=== PATIENT | female | born 1985 | race Caucasian/White ===

== ENCOUNTER 2020-02-13 14:30 | Emergency (ER) | payer BC, SELFPAY ==
[2020-02-13 14:34] VITALS: BP 117/78; PULSE 78; RESP 12; TEMP 36.7; O2SAT 100
--- NOTE | 2020-02-13 14:53 | ED.URI ---
HPI - URI/Sore Throat General Chief Complaint: Ear Stated Complaint: sore throat Source: patient Mode of arrival: ambulatory Limitations: no limitations History of Present Illness HPI Narrative: Patient is a 34-year-old female who presents complaining of a sore throat. Patient reports sore throat started yesterday, increasing this morning. Patient also reports body aches. Patient works for the [employer] and does have high exposure risk to Covid. She denies taking [id number]-opn-[id number] medications for body aches or sore throat at this time. MD elicited complaint: sore throat Related Data Home Medications Medication Instructions Recorded Confirmed levonorgestrel 20 mcg/24 hours (6 1 device I-UTERINE ONCE 05/08/19 02/13/20 yrs) 52 mg intrauterine device naproxen 500 mg tablet 500 mg PO BID 05/08/19 02/13/20 levothyroxine 50 mcg PO DAILY 02/13/20 02/13/20 Allergies Allergy/AdvReac Type Severity Reaction Status Date / Time codeine Allergy Mild Nausea and Verified 02/13/20 14:34 Vomiting morphine Allergy Mild Nausea and Verified 02/13/20 14:34 Vomiting Review of Systems Review of Systems: Narrative: CONSTITUTIONAL: Denies fever, chills, or sweats. EYES: Denies visual changes, redness, or discharge. ENT: Reports sore throat CARDIOVASCULAR: Denies chest pain, palpitations, or edema. RESPIRATORY: Denies cough or dyspnea. GASTROINTESTINAL: Denies abdominal pain, nausea, vomiting, or diarrhea. GENITOURINARY: Denies dysuria or hematuria. SKIN: Denies rash or itching. MUSCULOSKELETAL: Reports generalized body aches NEUROLOGIC: Denies headache, numbness, dizziness, or weakness. PSYCHIATRIC: Denies anxiety or depression. [facility] Past Medical History Medical History Asthma Surgical History Surgical History H/O: History of strabismus surgery Hx of cholecystectomy Family History Family History Grandparent Family history of thyroid disease Cerebrovascular accident Family history of lung cancer Family history of congestive heart failure Diabetes mellitus Acute myocardial infarction Mother Family history of blood dyscrasia Father Family history of alcoholism Family history of hepatitis Social History Social History Smoking status: Never smoker Second hand tobacco smoke exposure: Yes Alcohol intake: never Exam Narrative: Exam Narrative: GENERAL: Well-appearing, well-nourished, and in no acute distress. HEAD: Normocephalic, atraumatic. EYES: EOMI. No redness or drainage. Conjunctiva are normal. ENT: Mucous membranes pink and moist. Throat normal erythema and exudate. Uvula midline. NECK: No lymphadenopathy. CHEST: No respiratory distress. EXTREMITIES: Normal range of motion. SKIN: Warm, dry, no rash. NEURO: No focal deficits. Alert and oriented x3. Gait steady. PSYCH: Normal affect. No signs of depression or anxiety. Course Vital Signs Vital signs: Vital Signs Temperature 36.7 C 02/13/20 14:34 Pulse Rate 78 02/13/20 14:34 Respiratory Rate 12 02/13/20 14:34 Blood Pressure 117/78 02/13/20 14:34 Pulse Oximetry 100 02/13/20 14:34 Temperature 36.7 C 02/13/20 14:34 Pulse Rate 78 02/13/20 14:34 Respiratory Rate 12 02/13/20 14:34 Blood Pressure 117/78 02/13/20 14:34 Pulse Oximetry 100 02/13/20 14:34 Reviewed MDM - URI/Sore Throat MDM Narrative Medical decision making narrative: Patient's rapid strep was negative, culture to be sent. Discussed with patient Covid testing. Patient works in a high risk environment with the [employer]. Patient agrees to Covid testing at this time. Discussed symptomatic treatment, as well as quarantine. Patient is aware that if she develops chest pain or shortness of
== END 2020-02-13 15:05 | disposition home or self-care (01) ==
PROVIDERS: Emergency Provider Nurse Practitioner; PCP Physician Assistant
DX: J06.9 Acute upper respiratory infection, unspecified (principal); Z20.828 Contact with and (suspected) exposure to other viral communicable diseases; J45.909 Unspecified asthma, uncomplicated
CPT/HCPCS: 87081; 87880; 99213; G0463

== ENCOUNTER 2020-02-14 07:05 | Outpatient (NON) | payer BC, SELFPAY ==
[2020-02-15 00:19] LABS: SARS-CoV-2 RNA PCR Positive
== END 2020-02-14 07:06 ==
PROVIDERS: PCP Physician Assistant; Visit Provider Nurse Practitioner
DX: U07.1 COVID-19 (principal)
CPT/HCPCS: 87635; C9803; U0003

== ENCOUNTER 2021-10-31 13:22 | Emergency (ER) | payer BC, SELFPAY ==
--- NOTE | ~2021-10-31 | XR_ITS ---
EXAMINATION: XR foot RT min 3V DATE: 10/31/2021 13:44 INDICATION: Right foot injury and pain. TECHNIQUE: 4 views of right foot were obtained. COMPARISON: None. FINDINGS: Bone alignment is normal. There is a comminuted intra-articular fracture of base of fifth m etatarsal in near-anatomic alignment. There is mild osteoarthritis of first metatarsophalangeal joint . IMPRESSION: 1. Comminuted intra-articular fracture of base of fifth metatarsal. Reviewed, dictated and finalized at location A.
[2021-10-31 13:44] VITALS: BP 128/76; PULSE 84; RESP 16; TEMP 36.5; O2SAT 100
--- NOTE | 2021-10-31 14:23 | ED.LOWEXIN ---
HPI - Extremity Injury (Lower) General Chief Complaint: Extremity Injury, Lower Stated Complaint: right foot injury; right wrist cut Time Seen by Provider: 10/31/21 14:22 Source: patient and RN notes reviewed Mode of arrival: ambulatory Limitations: no limitations History of Present Illness HPI Narrative: 36-year-old female presents with concern for right foot pain. She reports prior to arrival she was walking her dog when she injured her foot. Reports she continued to walk several more miles. She denies taking any yplp-[id number]-izrshke medications for her pain. She reports the foot feels swollen with lateral pain. She denies any decreased sensation, strength, range of motion. Reports pain with weightbearing and range of motion MD complaint: foot injury Related Data Home Medications Medication Instructions Recorded Confirmed levonorgestrel 20 mcg/24 hours (7 1 device intrauterine ONCE 05/08/19 07/26/21 yrs) 52 mg intrauterine device (Mirena) Allergies Allergy/AdvReac Type Severity Reaction Status Date / Time codeine Allergy Mild Nausea and Verified 07/26/21 09:23 Vomiting morphine Allergy Mild Nausea and Verified 07/26/21 09:23 Vomiting Review of Systems Review of Systems: CONSTITUTIONAL: Denies malaise, chills, sweats, or fever. SKIN: Denies rash or itching, open skin, laceration, abrasion, redness, warmth MUSCULOSKELETAL: Reports right foot pain, swelling, bruising NEUROLOGIC: Denies numbness, weakness All systems reviewed & are unremarkable except as noted in HPI and below PMFSH Past Medical History Medical History Asthma Surgical History Surgical History H/O: History of strabismus surgery Hx of cholecystectomy Family History Family History Grandparent Family history of thyroid disease Cerebrovascular accident Family history of lung cancer Family history of congestive heart failure Diabetes mellitus Acute myocardial infarction Mother Family history of blood dyscrasia Father Family history of alcoholism Family history of hepatitis Social History Social History Smoking status: Never smoker Second hand tobacco smoke exposure: Yes Alcohol intake: never Comments At time of signature, agree with nursing past medical, surgical, social and family history. There is no relevant family history pertinent to the presenting complaint Exam Narrative: GENERAL: Well-appearing, well-nourished, and in no acute distress. HEAD: Normocephalic, atraumatic. EYES: PERRLA, conjunctivae clear NECK: Supple. CHEST: Speaks in full sentences. No respiratory distress. HEART: Regular rate and rhythm. Normal and equal peripheral pulses. EXTREMITIES: Right foot, digits have normal strength and sensation, grossly normal range of motion. Lateral foot tenderness, edema and ecchymosis. 5/5 strength with digit flexion and extension. Normal sensation with sensitivity to light touch and pain. No open wounds, no skin tenting, no devitalized tissue or atrophy, no trophic changes, no obvious deformity, alignment normal, nearby joints and structures intact. Distal pulses palpable and equal bilaterally, skin warm, dry, pink. Capillary refill less than 3 seconds. SKIN: Warm, dry, no rash. NEURO: Alert and oriented x3. PSYCH: Normal mood and affect Course Course Emergency Course: Patient is aware of diagnosis, understands and agrees to treatment plan. Anticipatory guidance given. Patient agrees to follow-up as directed and is aware of reasons to seek care at the emergency department. Portions of this record may have been created with voice recognition software Level of Care: Express Care Visit Vital Signs Vital signs: Vital Signs Temperature 97.7 F 10/31/21 13:44 Pulse
[2021-10-31] MEDS: IBUPROFEN 400 MG TABLET 800 MG PO (14:41)
== END 2021-10-31 14:48 | disposition home or self-care (01) ==
PROVIDERS: Emergency Provider Nurse Practitioner; PCP Physician Assistant
DX: S92.351A Displaced fracture of fifth metatarsal bone, right foot, initial encounter for closed fracture (principal); X58.XXXA Exposure to other specified factors, initial encounter; Y93.K1 Activity, walking an animal; J45.909 Unspecified asthma, uncomplicated
CPT/HCPCS: 73630; 99214; A9270; G0463

== ENCOUNTER 2022-10-06 19:17 | Emergency (ER) | payer BC, SELFPAY ==
--- NOTE | ~2022-10-06 | XR_ITS ---
XR ankle RT min 3V, XR foot RT min 3V 10/06/2022 19:38 INDICATION: Right ankle and foot pain PROCEDURE: 4 views right ankle and 4 views right foot COMPARISON: No prior studies for comparison. FINDINGS: Fracture, dislocation or subluxation is not identified. Lisfranc joint intact. The soft tis sues appear within normal limits. No foreign bodies are identified. IMPRESSION: 1: NO ACUTE BONE OR JOINT ABNORMALITY IDENTIFIED. Reviewed, dictated and finalized at location A. IMPRESSION: 1: NO ACUTE BONE OR JOINT ABNORMALITY IDENTIFIED.
--- NOTE | 2022-10-06 19:22 | ED.LOWEXIN ---
HPI - Extremity Injury (Lower) General Chief Complaint: Extremity Injury, Lower Stated Complaint: R ANKLE/FOOT INJURY Time Seen by Provider: 10/06/22 19:22 Source: patient Mode of arrival: ambulatory Limitations: no limitations History of Present Illness HPI Narrative: 37 yo F presents with c/o pain to R ankle and foot starting this AM. Reports that she dropped drill bit on R 4th toe yesterday but did not have any pain. Woke up this AM and could barely bear weight on R leg. States throughout the day pain has gotten significant worse and is swollen and tight. i dont think dropping the drill bit on my toe has anyting to do with my pain today . Pt states she has been doing a lot of electrical work at home and also some outdoor work around her pool. Does not think she was has any insect bites. Denies itching. has not taken any OTC medication today to treat pain. ambulatory with limp. all systems reviewed and negative except as noted above. Related Data Home Medications Medication Instructions Recorded Confirmed levonorgestrel 21 mcg/24 hours (8 1 device intrauterine ONCE 05/08/19 10/06/22 yrs) 52 mg intrauterine device (Mirena) Allergies Allergy/AdvReac Type Severity Reaction Status Date / Time codeine Allergy Mild Nausea and Verified 10/06/22 19:23 Vomiting morphine Allergy Mild Nausea and Verified 10/06/22 19:23 Vomiting Review of Systems Review of Systems: CONSTITUTIONAL: Denies fever, chills, or sweats. EYES: Denies visual changes, redness, or discharge. ENT: Denies rhinorrhea, congestion, sore throat, or otalgia. CARDIOVASCULAR: Denies chest pain, palpitations, or edema. RESPIRATORY: Denies cough or dyspnea. GASTROINTESTINAL: Denies abdominal pain, nausea, vomiting, or diarrhea. GENITOURINARY: Denies dysuria or hematuria. SKIN: Denies rash or itching. MUSCULOSKELETAL: Denies back pain, joint pain, or myalgia. reports pain and swelling to R ankle and foot. NEUROLOGIC: Denies headache, numbness, or weakness. PSYCHIATRIC: Denies anxiety or depression. All other systems reviewed are negative, except as documented in HPI. [facility] Past Medical History Medical History Abdominal bloating Acute costochondritis Anemia Asthma Asthma Cough Fatigue due to treatment General medical exam History of hypothyroidism HPV in female Hypertension Internal hemorrhoids Irritable bowel syndrome with diarrhea Migraine Migraine Other obesity Strabismus Thyroid disease Vertigo Surgical History Surgical History H/O: History of strabismus surgery Hx of cholecystectomy Family History Family History Grandparent Family history of thyroid disease Cerebrovascular accident Family history of lung cancer Family history of congestive heart failure Diabetes mellitus Acute myocardial infarction Mother Family history of blood dyscrasia Father Family history of alcoholism Family history of hepatitis Other Heart disease Hypertension Kidney disease Social History Social History Smoking status: Never smoker Second hand tobacco smoke exposure: Yes Alcohol intake: never Substance use: unknown Substance use type: does not use Lack of Transportation: No Lack of Food: Never True Current Housing: I Have Housing Concerned About Future Housing: No Difficulty Paying Gas/Electric Bills: No Difficulty Paying for Meds: No Currently Unemployed: No Education: Master's Degree or Higher Difficulty w/ Childcare or Family Care: No Gender identity (if verbalized by the patient): Female Comments At time of signature, agree with nursing past medical, surgical, social and family history. There is no relevant family history pertinent to the presenting compl
[2022-10-06 19:25] VITALS: BP 116/82; PULSE 89; RESP 16; TEMP 36.4; O2SAT 99
== END 2022-10-06 20:05 | disposition home or self-care (01) ==
PROVIDERS: Emergency Provider Nurse Practitioner Family; PCP Physician Assistant
DX: L03.115 Cellulitis of right lower limb (principal); J45.909 Unspecified asthma, uncomplicated; E03.9 Hypothyroidism, unspecified; I10 Essential (primary) hypertension; E66.8 Other obesity; Z68.32 Body mass index [BMI] 32.0-32.9, adult
CPT/HCPCS: 73610; 73630; 99213; G0463

== ENCOUNTER 2024-02-08 23:10 | Emergency (ER) | payer OTHER, SELFPAY ==
[2024-02-08 23:12] VITALS: BP 109/71; PULSE 69; RESP 14; TEMP 36.4; O2SAT 100
--- NOTE | 2024-02-08 23:54 | ED_ITS ---
HPI - Skin/Abscess/Foreign Bdy General Chief complaint: Skin/Abscess/Foreign Body Stated complaint: left hand second digit laceration Time Seen by Provider: 02/08/24 23:36 Source: patient Mode of arrival: ambulatory Limitations: no limitations History of Present Illness HPI narrative: This is a 38-year-old female who presents to the ED for chief complaint of laceration injury to the left index finger that occurred just prior to arrival. Patient was wrapping presents in using a box shook patcher. She accidentally cut towards herself and made a vertical laceration on the palmar side of the index finger of the left hand. Denies numbness, weakness or any further injury. Related Data Home Medications Medication Instructions Recorded Confirmed levonorgestrel 21 mcg/24 hr (up to 1 device intrauterine ONCE 05/08/19 08/08/23 8 years) 52 mg intrauterine device (Mirena) cholecalciferol (vitamin D3) 125 125 mcg PO DAILY 08/08/23 08/08/23 mcg (5,000 unit) capsule Allergies Allergy/AdvReac Type Severity Reaction Status Date / Time codeine Allergy Mild Nausea and Verified 02/08/24 23:10 Vomiting morphine Allergy Mild Nausea and Verified 02/08/24 23:10 Vomiting Review of Systems Review of Systems: All systems as dictated in HPI [facility] Past Medical History Medical History Abdominal bloating Acute costochondritis Anemia Asthma Asthma Cough Fatigue due to treatment General medical exam History of hypothyroidism HPV in female Hypertension Internal hemorrhoids Irritable bowel syndrome with diarrhea Migraine Migraine Other obesity Strabismus Thyroid disease Vertigo Surgical History Surgical History H/O: History of strabismus surgery Hx of cholecystectomy Family History Family History Grandparent Family history of thyroid disease Cerebrovascular accident Family history of lung cancer Family history of congestive heart failure Diabetes mellitus Acute myocardial infarction Mother Family history of blood dyscrasia Father Family history of alcoholism Family history of hepatitis Other Heart disease Hypertension Kidney disease Social History Social History Smoking status: Never smoker Second hand tobacco smoke exposure: Yes Alcohol intake: never Substance use: unknown Substance use type: does not use Lack of Transportation: No Lack of Food: Never True Current Housing: I Have Housing Concerned About Future Housing: No Difficulty Paying Gas/Electric Bills: No Difficulty Paying for Meds: No Currently Unemployed: No Education: Master's Degree or Higher Difficulty w/ Childcare or Family Care: No Gender identity (if verbalized by the patient): Female Exam Narrative: GENERAL: Well-appearing, well-nourished, and in no acute distress. HEAD: Normocephalic, atraumatic. EYES: PERRLA and EOMI. ENT: Nares clear, no rhinorrhea or epistaxis. Mucous membranes moist. Oropharynx without tonsillar hypertrophy exudate or other lesions. NECK: Supple. No adenopathy or masses. CHEST: No respiratory distress. Clear to auscultation. No wheezes rales or rhonchi HEART: Regular rate and rhythm. No murmur heard. Normal peripheral pulses. ABDOMEN: Soft, nontender, nondistended, normal active bowel sounds. MSK: Normal range of motion. No edema. SKIN: 3 cm superficial vertical laceration to the palmar left index finger. Bleeding controlled. NEURO: Alert and oriented x4. No focal deficits. PSYCH: Normal mood and affect. Course Vital Signs Vital signs: Vital Signs Temperature 97.6 F 02/08/24 23:12 Pulse Rate 69 02/08/24 23:12 Respiratory Rate 14 02/08/24 23:12 Blood Pressure 109/71 02/08/24 23:12 Pulse Oximetry 100 02/08/24 23:12 Oxygen Delivery Room Air 02/08/24 23:12 Temperature 97.6 F 02/08/24 23:12 Pulse Rate 69 02/08/24 23:12 Respiratory Rate 14 02/08/24 23:12 Blood Pressure 109/71 02/08/24 23:12 Pulse Oximetry 100 02/08/24 23:12 Oxygen Delivery Room Air 02/08/24 23:12 Procedures Laceration Laceration 1: Date: 02/08/24 Time: 23:55 Site: hand Side (If applicable): left Size (cm): 3 Description: linear Depth: simple, single layer Local Anesthetic: none Pre-repair: wound explored and irrigated extensively ====== Skin Level ====== Skin layer closed with: dermabond and steri strips Number of sutures: 3 ====== Subcutaneous Layer ====== ====== Muscle Layer ====== ====== Tendon Layer ====== MDM - Skin/Abscess/Foreign Bdy MDM Narrative Medical decision making narrative: 38-year-old female who presents to the ED for laceration to the index finger of the left hand. Vitals are. Exam remarkable for the above with bleeding controlled. The wound was well cleansed here in the ED. Closed with Dermabond and Steri-Strips and is well approximated. Tdap updated today. Pt will be discharged in stable condition. Return precautions given and supportive measures discussed. Pt is understanding and agreeable with plan for discharge and follow-up with PCP. Discharge Plan Discharge Clinical Impression: Laceration Patient Disposition: Home, Self-Care Condition: Stable Instructions: Antibiotic Form, Laceration (ED) Additional Instructions: Keep wound clean and dry. Do not soak, take baths, or swim until wound is com pletely healed. If any signs of infection such as redness, swelling, increasing pain, drainage of purulent discharge, streaks up your extremity develop, seek medical attention immediately. Followup with your primary care provider in [7] days for suture removal. Prescriptions: No Action sertraline 100 mg tablet 100 mg PO DAILY Qty: 90 2RF cholecalciferol (vitamin D3) 125 mcg (5,000 unit) capsule 125 mcg PO DAILY levothyroxine 50 mcg tablet See Rx Instructions .ROUTE .COMPLEX Qty: 90 3RF Dose Instruction: TAKE 1 TABLET DAILY Rx Instructions: TAKE 1 TABLET DAILY Mirena 20 mcg/24 hours (5 yrs) 52 mg intrauterine device 1 device I-UTERINE ONCE Rx Instructions: as a single dose cyanocobalamin (vitamin B-12) 1,000 mcg/mL solution 1,000 mcg IM MONTHLY Qty: 3 3RF hydrocortisone acetate [Anusol-HC] 25 mg suppository 25 mg RECTAL DAILY Qty: 12 2RF alprazolam 0.5 mg tablet 0.5 mg PO BID PRN (Reason: anxiety) Qty: 90 0RF minoxidil 5 % solution 1 ml topical BID Qty: 120 4RF Contrave 8-90 mg tablet extended release 1 tablet PO ONCE Qty: 30 1RF Follow-up/Referrals: Magdalene,RON OroC [Primary Care Provider] - Time of Disposition: 23:57
[2024-02-09] MEDS: TETANUS,DIPHTHERIA,AC PERTUSSIS ADULT (0.5 ML) BOOSTRIX IM (00:02)
[2024-02-09 00:07] VITALS: BP 103/64; PULSE 68; RESP 14; O2SAT 99
== END 2024-02-09 00:13 | disposition home or self-care (01) ==
PROVIDERS: Emergency Provider Physician Assistant; PCP Physician Assistant
DX: S61.211A Laceration without foreign body of left index finger without damage to nail, initial encounter (principal); Z23 Encounter for immunization; I10 Essential (primary) hypertension; J45.909 Unspecified asthma, uncomplicated; E03.9 Hypothyroidism, unspecified; K58.0 Irritable bowel syndrome with diarrhea; Z86.2 Personal history of diseases of the blood and blood-forming organs and certain disorders involving the immune mechanism; Z77.22 Contact with and (suspected) exposure to environmental tobacco smoke (acute) (chronic); W27.8XXA Contact with other nonpowered hand tool, initial encounter
CPT/HCPCS: 12002; 90471; 90715; 99282

== ENCOUNTER 2024-10-02 15:38 | Outpatient (CLI) | payer BC, SELFPAY ==
--- NOTE | ~2024-10-02 | MM_ITS ---
EXAMINATION: screening [facility] BI w raffaele INDICATION: Asymptomatic, referred for screening mammogram COMPARISON: baseline TECHNIQUE: Digital Breast Tomosynthesis CC, MLO views of Both breasts were obtained with computer-ai ded detection to assist in interpretation of the study. FINDINGS: There are scattered areas of fibroglandular density. There is an asymmetry seen on the cc view in the Lateral right breast centered at 4.5 cm posterior to the nipple. Elsewhere, there are no mammographic features of malignancy. IMPRESSION: 1. Right breast Asymmetry. 2. No evidence of malignancy in the Left breast. RECOMMENDATION: Right breast Diagnostic mammogram with true lateral, appropriate spot compression views and an ultras ound if needed. BI-RADS Category 0: Incomplete: Needs additional imaging evaluation. Reviewed, dictated and finalized at location B. IMPRESSION: 1. Right breast Asymmetry. 2. No evidence of malignancy in the Left breast. RECOMMENDATION: Right breast Diagnostic mammogram with true lateral, appropriate spot compressi on views and an ultrasound if needed. BI-RADS Category 0: Incomplete: Needs additional imaging evaluation.
== END 2024-10-02 15:39 | disposition home or self-care (01) ==
PROVIDERS: PCP Nurse Practitioner; Visit Provider Student in an Organized Health Care Education/Training Program
DX: Z12.31 Encounter for screening mammogram for malignant neoplasm of breast (principal); R92.8 Other abnormal and inconclusive findings on diagnostic imaging of breast
CPT/HCPCS: 77063; 77067

== ENCOUNTER 2024-11-29 09:56 | Outpatient (CLI) | payer BC, SELFPAY ==
--- NOTE | ~2024-11-29 | MMUS_ITS ---
EXAMINATION: US breast RT limited, MM diagnostic kush RT w raffaele HISTORY: Inconclusive mammogram TECHNIQUE: Additional imaging of the right breast breast]] were performed using full field digital mammography. 3-D tomosynthesis were also obtained and synthetic 2-D images were generated. CAD analysis was submitted and interpreted. High-resolution right breast ultrasound was performed.] ] COMPARISON: Mammograms from 11/29/2024 and 10/02/2024 BREAST PARENCHYMAL COMPOSITION: The breasts are heterogeneously dense, which may obscure small masses. FINDINGS: MAMMOGRAPHIC FINDINGS: Redemonstration of asymmetry in the outer right breast, middle depth, seen in the right. No sonographic correlate. The finding is probably benign. ULTRASOUND: No cystic or solid mass identified in the area of concern right breast. IMPRESSION/RECOMMENDATION: 1. Probably benign finding in the right breast. A diagnostic right breast mammogram and a diagnostic right breast ultrasound in 6 months is recommended. BI-RADS 3-Probably benign-Short interval follow-up suggested. Reviewed, dictated and finalized at location Q. IMPRESSION/RECOMMENDATION: 1. Probably benign finding in the right breast. A diagnostic right breast mammo gram and a diagnostic right breast ultrasound in 6 months is recommended. BI-RADS 3-Probably benign-Short interval follow-up suggested. IMPRESSION/RECOMMENDATION: 1. Probably benign finding in the right breast. A diagnostic right breast mammo gram and a diagnostic right breast ultrasound in 6 months is recommended. BI-RADS 3-Probably benign-Short interval follow-up suggested.
--- OUTSIDE RECORDS SUMMARY | 2024-11-29 10:00 | XMS_ITS | Clinical Summary ---
Author Organization [facility] Address [address] [place] [address] Care Team Providers Care Mate Relief Name Role Phone Unavailable Primary Care Provider Unavailabl e Source Comments [facility],non-owned Affiliates and Associated Physician Practices is amultiple site organization consisting of ambulatory clinics and hospital sitesin [place], [place], [place] and [place]. This disclosure is being madepursuant to the Care Everywhere program and may not contain all information available regarding this patient. 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 Gender Identity Not on file Sexual Orientation Not on file Last Filed Vital Signs Vital Sign Reading Time Taken Comments Blood Pressure 112/70 05/15/2009 2:12 PM TECHNICIAN HELPER INSTRUMENT Pulse 73 05/15/2009 2:12 PM TECHNICIAN HELPER INSTRUMENT Temperature 37.1 C (98.7 F) 05/15/2009 2:12 PM TECHNICIAN HELPER INSTRUMENT Respiratory Rate 18 05/15/2009 2:12 PM TECHNICIAN HELPER INSTRUMENT Oxygen Saturation - - Inhaled Oxygen Concentration - - Weight 136.1 kg (300 lb) 05/15/2009 3:14 PM TECHNICIAN HELPER INSTRUMENT Height 182.9 cm (6') 05/15/2009 3:14 PM TECHNICIAN HELPER INSTRUMENT Body Mass Index 40.69 05/15/2009 3:14 PM TECHNICIAN HELPER INSTRUMENT Plan of Treatment Health Maintenance Due Date Last Done Comments LIPID TESTING 1983 MAMMOGRAM 1983 HIV SCREENING 09/15/1998 HEPATITIS C SCREENING 09/11/2001 DTAP/TDAP/TD VACCINES (1 - Tdap) 09/15/2002 HEPATITIS B VACCINE (1 of 3 - 19+ 3-dose series) 09/15/2002 HPV VACCINE (1 - 3-dose SCDM series) 09/15/2010 DEPRESSION SCREENING 03/13/2024 COVID-19 VACCINE (1 - 2023-2 5 season) 2024 INFLUENZA VACCINE (#1) 2024 ZOSTER VACCINE (1 of 2) 09/15/2033 HIB VACCINE Aged Out No longer eligi ble based on patient's age to complete this topic MENINGOCOCCAL (Group B) VACC INE SHARED DECISION-MAKING Aged Out No longer eligibl e based on patient's age to complete this topic MENINGOCOCCAL GROUPS A/C/Y/W VACCINE Aged Out No longer eligible b ased on patient's age to complete this topic PNEUMOCOCCAL VACCINE Aged Out No long er eligible based on patient's age to complete this topic
== END 2024-11-29 09:57 | disposition home or self-care (01) ==
PROVIDERS: PCP Nurse Practitioner; Visit Provider Student in an Organized Health Care Education/Training Program
DX: R92.8 Other abnormal and inconclusive findings on diagnostic imaging of breast (principal)
CPT/HCPCS: 76642; 77061; 77065; G0279

== ENCOUNTER 2025-01-31 10:08 | Outpatient (CLI) | payer BC, SELFPAY ==
--- NOTE | ~2025-01-31 | XR_ITS ---
EXAM/PROCEDURE: XR hysterosalpingogram HISTORY: INFERTILITY COMPARISON: None available. TECHNIQUE: Standard technique for fluoroscopic hysterosalpingogram performed. Fossae time: 0.2 minutes DAP: 2.9 Harry per square centimeter Number of images: 9 Note: Procedure performed with police guard conducting invasive portion. FINDINGS: The uterus and fallopian tubes fill quickly with the fimbrial regions normal in appearance. No suspicious filling defects or contour irregularity seen. Peritoneal spill also observed bilaterally. IMPRESSION: HSG within normal limits. Reviewed, dictated and finalized at location A. ER/WAITRESS TOURIST CLASS IMPRESSION: HSG within normal limits.
--- OUTSIDE RECORDS SUMMARY | 2025-01-31 10:12 | XMS_ITS | Clinical Summary ---
Author Organization [facility] Address [address] [place] [address] Care Team Providers Care Web Development Intern Name Role Phone Unavailable Primary Care Provider Unavailabl e Source Comments [facility],non-owned Affiliates and Associated Physician Practices is amultiple site organization consisting of ambulatory clinics and hospital sitesin [place], [place], [place] and [place]. This disclosure is being madepursuant to the Care Everywhere program and may not contain all information available regarding this patient. 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 Gender Identity Not on file Sexual Orientation Not on file Last Filed Vital Signs Vital Sign Reading Time Taken Comments Blood Pressure 112/70 05/15/2009 2:12 PM DESKTOP SUPPORT ENGINEER Pulse 73 05/15/2009 2:12 PM DESKTOP SUPPORT ENGINEER Temperature 37.1 C (98.7 F) 05/15/2009 2:12 PM DESKTOP SUPPORT ENGINEER Respiratory Rate 18 05/15/2009 2:12 PM DESKTOP SUPPORT ENGINEER Oxygen Saturation - - Inhaled Oxygen Concentration - - Weight 136.1 kg (300 lb) 05/15/2009 3:14 PM DESKTOP SUPPORT ENGINEER Height 182.9 cm (6') 05/15/2009 3:14 PM DESKTOP SUPPORT ENGINEER Body Mass Index 40.69 05/15/2009 3:14 PM DESKTOP SUPPORT ENGINEER Plan of Treatment Health Maintenance Due Date Last Done Comments LIPID TESTING 1983 MAMMOGRAM 1983 HIV SCREENING 09/15/1998 HEPATITIS C SCREENING 09/11/2001 DTAP/TDAP/TD VACCINES (1 - Tdap) 09/15/2002 HEPATITIS B VACCINE (1 of 3 - 19+ 3-dose series) 09/15/2002 PAP SMEAR 09/15/2004 HPV VACCINE (1 - 3-dose SCDM series) 09/15/2010 Cervical Cancer Screening 09/15/2013 PAP with HPV 09/15/2013 DEPRESSION SCREENING 03/13/2024 COVID-19 VACCINE (1 - 2024-2 6 season) 2024 INFLUENZA VACCINE (#1) 2024 ZOSTER [...]
--- OUTSIDE RECORDS SUMMARY | 2025-01-31 10:12 | XMS_ITS | Continuity of Care Document ---
Author Organization [facility] [place] Address [address] [place] [address] [place] [address] Care Team Providers Care Napper Tender Name Role Phone NELI PEREZ Primary Care Provider Assessment No assessment recorded. Plan of Treatment Reminders Order Date Submit Date Provider Last Modified By Organization Details Last Modified Time Details Appointments SURG Hysterosa lpingogra m 2024 11:30A Kameron RILEY MD Not available Not available Not available [facility] 2024 03:15P Kameron GREER NP Not available Not available Not available Lab None recorded. Referral None recorded. Procedures None recorded. Surgeries None recorded. Imaging XR, hysterosa lpingogra m - patient had her period 2024 025 [id number] [facility], [address], [place], [address], 01/27/2025 13:19:27 Medication Orders None recorded. Patient TargetsNo targets recorded. Patient InstructionsNo instructions recorded. Reason for Referral None Reported. Results Created Date Observation Date Name Description Value Unit Range Abnormal Flag Note LastModifiedBy Organization Detail LastModifiedTime 12/04/1911/29/2024 MAMMO , diagn ostic , digit al, bilat eral No observ ation record ed. [email or web address] [facility] [address], [place], [address], 12/10/2024 12:06:08 Result Notes None recorded. Problems Name Problem SNOMED Code Status Onset Date Resolution Date Notes Provider Name and Address Organization Details Recorded Time Speciali zed medical examinat ion Completed 201011/23/2020 Routine gynecolog ical examinati on;Practi ce ID: 0001 Erika Patel [facility] 10:44:58 Screenin g for malignan t neoplasm of cervix Completed 201011/23/2020 Pap Smear;Pra ctice ID: 0001 Erika Patel [facility] 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 10:44:47 Herpes simplex 79603582 Completed 201011/23/2020 Herpes simplex without mention of complicat ion;Pract ice ID: 0001 Erika Patel [facility] 10:44:38 Morbid obesity [id number] Completed 201311/23/2020 Morbid obesity;P ractice ID: 0001 Erika Patel [facility] 10:44:45 Family planning surveill ance Completed 201311/23/2020 Contracep tive surveilla nce, unspecifi ed;Practi ce ID: 0001 Erika Patel [facility] 10:44:36 Removal of intraute rine device Completed 201311/23/2020 REMOVAL OF IUD;Pract ice ID: 0001 Erika Patel [facility] 10:44:50 Insertio n of intraute rine contrace ptive device Completed 201311/23/2020 INSERTION OF IUD;Pract ice ID: 0001 Erika Patel null, [facility] 10:44:41 Pregnanc y test negative [id number] Completed 201311/23/2020 Negative Test;Prac mona ID: 0001 Erika martinez [facility] 10:44:49 Irregula r periods [id number] Completed 201311/23/2020 Irregular menstrual cycle;Pra ctice ID: 0001 Erika Patel [facility] 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 10:44:[address] Concept Completed 201411/23/2020 Encntr for general adult medical exam w/o abnormal findings; Recorded Elsewhere : No Locati on: [facility] So urce: EHR Chron ic: N Practic e ID: 0001 Bill able Time: 10:30:00 AM Erika Patel [facility] 10:44:54 Human papillom avirus deoxyrib onucleic acid detected , high risk on cervical specimen [id number] Completed 201511/23/2020 Cervical high risk HPV DNA test positive; Practice ID: 0001 Erika Patel [facility] 10:44:39 Clinical finding Completed 201811/23/2020 Presence of (intraute rine) contracep tive device;Re corded Elsewhere : No Locati on: [facility] So urce: EHR Chron ic: N Practic e ID: 0001 Bill able Time: 09:30:00 AM Erika martinez [facility] 10:44:33 Contrace ptive sheath status [id number] Completed 201811/23/2020 Encounter for routine checking of intrauter ine contracep dev;Pract ice ID: 0001 Erika Patel [facility] 1 10:44:35 Problem Notes None recorded. Procedures Surgical History Date Name Laterality Status Provider Name and Address Organization Details Recorded Time 024 IUD Removal completed Fabian Riley MD [address], [place], [address], [facility] 03/07/2024 14:47:24 024 Date of Last Pap Smear completed Mari Santoyo [facility] 03/07/2024 14:14:51 018 Gastric Bypass completed Erika [facility] 11/23/2020 11:38:23 009 section completed Erika [facility] 11/23/2020 11:37:56 007 [facility] 11/23/2020 11:38:06 Cholecystectomy completed Lny Cyr [facility] 11/20/2019 15:35:53 Imaging Results None recorded. Procedure Notes None recorded. Medical Equipment None Reported. Allergies Allergen ID Allergen Name Allergen Category Reaction Reaction Severity Criticality Documentation Date Start Date Code Code System Note Provider Name and Address Organization Details Recorded Time 1982 codeine medicatio n Not available Not available Not available 11/20/2019 2670 RxNorm Lyn Ger juan [facility] 0 15:35:05 72963 morphine medicatio n Not available Not available Not available 01/27/20252009 7052 RxNorm Not Available [facility] - External Data Service - prod 5 15:32:47 Medications Name Sig Start Date Stop Date Status Note LastModified by Organization Details LastModified Time Mirena 21 mcg/24 hr (up to 8 years) 52 mg intrauter ine device Take by intraute rine route. 12/16 completed Not Available Not Available Not Available [place] Thyroid 90 mg tablet 03/23 completed Prescrib ed Elsewher e: Yes Loca tion: [facility] odify By: gary barboza DateTime : 02/10/20 17 08:30:00 AM Not Available Not Available Not Available azithromy jose 250 mg tablet TAKE 2 TABLETS BY MOUTH FOR 1 DAY THEN TAKE 1 TABLET BY MOUTH DAILY FOR 4 DAYS 10/07 completed Not Available Not Available Not Available fluconazo le 150 mg tablet TAKE 1 TABLET BY MOUTH NOW, REPEAT IN 7 DAYS 12/02 completed Not Available Not Available Not Available hydrocodo ne 5 mg-acetam inophen 500 mg capsule take 1 capsule by oral route every 6 hours as needed 04/24 completed Prescrib ed Elsewher e: Yes Loca tion: [facility] odify By: mildred barboza DateTime : 07/12/19 14 08:30:00 AM Not Available Not Available Not Available sertralin e 100 mg tablet 03/07 completed Not Available Not Available Not Available Anucort-H C 25 mg supposito ry UNWRAP AND INSERT 1 SUPPOSIT ORY RECTALLY DAILY 03/07 completed Not Available Not Available Not Available metronida zole 500 mg tablet TAKE 1 TABLET BY MOUTH TWICE DAILY FOR 7 DAYS 02/06 completed Not Available Not Available Not Available BD Luer-Regina Syringe 5 mL 22 x 1 06/04 completed Not Available Not Available Not Available naproxen 125 mg/5 mL oral suspensio n 11/23 completed Not Available Not Available Not Available tramadol 50 mg tablet TAKE 1 TABLET BY MOUTH EVERY 6 HOURS NEEDED FOR PAIN 10/07 completed Not Available Not Available Not Available minoxidil 5 % topical solution 03/07 completed Not Available Not Available Not Available spironola ctone 25 mg tablet TAKE 1 TABLET BY MOUTH EVERY DAY 03/07 completed Not Available Not Available Not Available phentermi ne 30 mg capsule take 1 capsule by oral route every day before breakfas t 04/24 completed Prescrib ed Elsewher e: Yes Loca tion: [facility] odify By: mildred barboza DateTime : 01/23/20 12 09:15:00 AM Not Available Not Available Not Available alprazola m 0.5 mg tablet TAKE 1 TABLET BY MOUTH TWICE DAILY NEEDED FOR ANXIETY 12/16 completed Not Available Not Available Not Available lorazepam 0.5 mg tablet TAKE 1 TABLET BY MOUTH DAILY NEEDED FOR ANXIETY 06/04 completed Not Available Not Available Not Available methocarb ciara 750 mg tablet TAKE 1 TABLET BY MOUTH THREE TIMES DAILY NEEDED FOR MUSCLE SPASM 12/16 completed Not Available Not Available Not Available dicyclomi ne 20 mg tablet 06/04 completed Not Available Not Available Not Available Synthroid 25 mcg tablet 11/23 completed Not Available Not Available Not Available cephalexi n 500 mg capsule TAKE ONE CAPSULE BY MOUTH FOUR TIMES DAILY UNTIL ALL TAKEN 12/16 completed Not Available Not Available Not Available pantopraz ole 40 mg tablet,de layed release 06/04 completed Not Available Not Available Not Available cyanocoba izaiah (vit B-12) 1,000 mcg/mL injection solution Inject 1 mL every month by subcutan eous route. 12/16 completed Not Available Not Available Not Available Synthroid 50 mcg tablet TAKE ONE TABLET BY MOUTH ONE TIME DAILY 02/06 completed Not Available Not Available Not Available ergocalci ferol (vitamin D2) 1,250 mcg (50,000 unit) capsule TAKE ONE CAPSULE BY MOUTH THREE TIMES A WEEK 02/15 completed Not Available Not Available Not Available ibuprofen 600 mg tablet 12/02 completed Not Available Not Available Not Available methylpre dnisolone 4 mg tablets in a dose pack FOLLOW PACKAGE DIRECTIO NS 12/02 completed Not Available Not Available Not Available albuterol sulfate HFA 90 mcg/actua tion aerosol inhaler INHALE 2 PUFFS BY MOUTH EVERY 4 TO 6 HOURS NEEDED 12/02 completed Not Available Not Available Not Available BD Luer-Regina Syringe 3 mL 22 gauge x 1 06/04 completed Not Available Not Available Not Available sertralin e 50 mg tablet 06/04 completed Not Available Not Available Not Available dicyclomi ne 10 mg capsule take 1 capsule by oral route 3 times every day 06/05 completed Prescrib ed Reinaldo e: Yes Loca tion: [facility] odify By: mildred barboza DateTime : 06/06/19 19 02:45:00 PM Not Available Not Available Not Available loratadin e 10 mg tablet take 1 tablet by oral route every day 04/24 completed Prescrib ed Elsewher e: Yes Loca tion: Mayra bo [facility] odify By: mildred barboza DateTime : 01/23/20 12 09:15:00 AM Not Available Not Available Not Available naproxen 500 mg tablet TAKE 1 TABLET BY MOUTH TWICE A DAY 10/07 completed Not Available Not Available Not Available amoxicill in 875 mg-potass ium clavulana te 125 mg tablet TK 1 T PO BID FOR 7 DAYS 06/04 completed Not Available Not Available Not Available Topamax 100 mg tablet take 2 tablet by oral route 2 times every day 06/05 completed Prescrib ed Elsewher e: Yes Loca tion: May[facility] odify By: mildred barboza DateTime : 02/10/20 17 08:30:00 AM Not Available Not Available Not Available Topamax 15 mg sprinkle capsule take 1 capsule by oral route 2 times every day in the morning and evening 06/04 completed Prescrib ed Elsewher e: Yes Loca tion: Mayra bo [facility] odify By: mildred barboza DateTime : 06/06/19 19 02:45:00 PM Not Available Not Available Not Available Topamax 50 mg tablet take 1 tablet by oral route 2 times every day 02/03 completed Prescrib ed Elsewher e: Yes Loca tion: Mayra bo [facility] odify By: smcaley Omega rodriguez DateTime : 01/23/20 12 08:07:34 AM Not Available Not Available Not Available dicyclomi ne 06/04 completed Not Available Not Available Not Available naproxen 06/04 completed Not Available Not Available Not Available Vitamin D 10/07 completed Not Available Not Available Not Available Synthroid 11/23 completed Not Available Not Available Not Available Topamax 06/04 completed Not Available Not Available Not Available Vitamin D3 10 mcg (400 unit) capsule 02/09 completed Prescrib ed Elsewher e: Yes Loca tion: Lydia anupam [facility] odify By: silverio barboza DateTime : 02/08/20 16 08:15:00 AM Not Available Not Available Not Available vitamin B comp and C no.3 10/07 completed Not Available Not Available Not Available cholecalc iferol (vitamin D3) 1,250 mcg (50,000 unit) capsule TAKE ONE CAPSULE BY MOUTH EVERY WEEK 03/07 completed Not Available Not Available Not Available Tirosint 13 mcg capsule take 1 capsule by oral route every day 06/05 completed Prescrib ed Elsewher e: Yes [facility]oca [facility] odify By: mildred marieuntander DateTime : 04/24/19 19 02:30:00 PM Not Available Not Available Not Available levothyro xine 50 mcg capsule Take 1 capsule every day by oral route. 03/07 completed Not Available Not Available Not Available Multi Vitamin active Not Available Not Available Not Available Trokendi XR 25 mg capsule,e xtended release take 1 capsule by oral route every day 02/09 completed Prescrib ed Elsewher e: Yes Loca [facility]ion: [facility]am [facility] odify By: silverio barboza DateTime : 02/04/20 15 10:30:00 AM Not Available Not Available Not Available Lortab Elixir 10 mg-300 mg/15 mL oral solution take 11.25 millilit er by oral route every 4 - 6 hours as needed 06/05 completed Prescrib ed Elsewher e: Yes Loca tion: [facility] odify By: mildred marieuntander DateTime : 04/24/19 19 02:30:00 PM Not Available Not Available Not Available BinaxNOW COVID-19 Ag Self Test kit Use as Directed on the Package 12/02 completed Not Available Not Available Not Available Wegovy 2.4 mg/0.75 mL subcutane ous pen injector ADMINIST ER 2.4 MG UNDER THE SKIN WEEKLY 12/16 completed Not Available Not Available Not Available Wegovy 1.7 mg/0.75 mL subcutane ous pen injector 12/16 completed Not Available Not Available Not Available Wegovy 1 mg/0.5 mL subcutane ous pen injector ADMINIST ER 1 MG UNDER THE SKIN WEEKLY 12/16 completed Not Available Not Available Not Available Wegovy 0.25 mg/0.5 mL subcutane ous pen injector 12/02 completed Not Available Not Available Not Available Wegovy 0.5 mg/0.5 mL subcutane ous pen injector 12/02 completed Not Available Not Available Not Available Vitals Date Recorded Body height Body mass index (BMI) Body weight Systolic And Diastolic Provider Name and Address Organization Details Last Updated DateTime 12/16/2024 173.36 cm 24.6 kg/m2 62567.56 g 124/78 mm[Hg] Mari Santoyo [facility] 12/16/2024 17:13:40 Social History Question Answer Notes LastModified by Organizat ion Details LastModified Time Tobacco Smoking Status Never [facility]oker [facility] 11/23/2020 11:36:02 Do You Have An Advance Directive? No Information n ot available 11/23/2020 Are You Blind Or Do You Have Difficulty Seeing? No Information n ot available 11/23/2020 What Is Your Level Of Caffeine Consumption? Moderate [email or web address] Information not available 02/07/2024 How Much Tobacco Do You Chew? None Information not available 11/23/2020 In The 14 Days Before Symptom Onset, Have You Had Close Contact With A Laboratory-confirm ed COVID-19 While That Case Was Ill? No Information n ot available 11/23/2020 In The 14 Days Before Symptom Onset, Have You Had Close Contact With A Person Who Is Under Investigation For COVID-19 While That Person Was Ill? No Information not available 11/23/2020 Have You Been To An Area Known To Be High Risk For COVID-19? No Information not available 11/23/2020 Are You Deaf Or Do You Have Serious Difficulty Hearing? No Information not available 11/23/2020 What Type Of Diet Are You Following? REGULAR Information n ot available 11/23/2020 What Is The Highest Grade Or Level Of School You Have Completed Or The Highest Degree You Have Received? [id number] Information not available 11/23/2020 Are There Any Guns Present In Your Home? Yes Information not available 11/23/2020 Do You Use Protection During Sex? No Information not available 11/23/2020 Do You Use Your Seat Belt Or Car Seat Routinely? Yes Information not available 11/23/2020 Do You Have Smoke And Carbon Monoxide Detectors In Your Home? Yes Information not available 11/23/2020 How Much Tobacco Do You Smoke? No Information not available 11/23/2020 Do You Use Sunscreen Routinely? Yes Information not available 11/23/2020 Have You Used IV Drugs? No Information not available 11/23/2020 Do You Have Difficulty Walking Or Climbing Stairs? No Information not available 11/26/2021 Sex: Unknown Functional Status Question Answer Note LastModified by Organizat ion Details LastModified Time Do you use any illicit or recreational drugs? No Information not available 11/23/2020 What is your level of alcohol consumption? None Information not available 11/23/2020 Are you able to walk independently without assistance or assistive devices? YESWOREST Information not available 11/23/2020 Are you able to care for yourself independently? 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 No Information not available 11/26/2021 What is your exercise level? Occasional [email or web address] Information not available 02/07/2024 Mental Status Question Answer Note LastModified by Organization D etails LastModified Time Do you feel stressed (tense, restless, nervous, or anxious, or unable to sleep at night)? [id number] Information not available 11/23/2020 Family History Relationship Description Onset Age of this Age Resolved Age Notes LastModified by Organization Details LastModified Time Paternal Grandmother Malignant neoplasm of lung Not available 2021 10:30:06 Medical History Condition Response Anxiety Disorder Y Infertility Y Asthma Y Depression/ depression Y Gynecological History Statement/Question Response Abnormal Pap Yes Flow Moderate Date of LMP 12/14/2024 On BCP's at Conception? N N Was last menstrual period normal Y STIs/STDs Y HPV Vaccine N 12 Current Control Method Seeking Pre gnancy Are cycles usually normal Y Frequency of Cycle (Q days) 26 Sexually Active? Y Menses Monthly Y Age of first menstrual cycle 10 Date of Last Pap Smear 02/07/2024 Sexual Problems? N Desired Control Method Seeking Pre gnancy LMP Definite N Obstetrics History GPAL:G 2 P 2 0 0 2 Type Value Full Term 2 Living 2 Total 2 Past Encounters Encounter ID Performer Location Encounter Start Date Encounter Closed Date Diagnosis/Indication Diagnosis SNOMED-CT Code Diagnosis ICD10 Code Diagnosis IMO Codes Diagnosis Note [id number] Fabian Riley MD [facility] [address] [address] 12/16/2024 16:37:32 12/16/2024 18:01:20 Female infertility 0850350 N97.9 [id number] This patient is a 39-year-ol d female who has been able to get for the last 12 months. She has been timing intercours e. Her menses are predictabl e. She is using ovulation predictor rené. She is having intercours e at appropriat e times. She has premenstru al symptoms. She has children of her own. Her partner has children also. We discussed of the evaluation . We agreed to proceed with hysterosal pingogram. We talked about treatment options in some detail. I explained hysterosal pingogram and semen analysis. Patient has recent normal laboratory evaluation of thyroid, prolactin, FSH, LH. Spent over 20 minutes on her care in total including documentat ion. Health Concerns Section Related Observation LastModified by Organization Detai ls LastModified Time None Recorded Concern Status LastModified by Organization Details LastModified Time None Recorded Payers Encounter Date Sequence Insurance Name Policy Number Policy Gore Covered Member ID Gore Member ID Guarantor Name 12/16/2024 1 [place] [place] ([place] [id number] Oleg Ayon [id number] Oleg Ayon Notes Date Note Type Note Provider Name and Address Organization Details Recorded Time 5 text/html This patient is a 39-year-old female who has been able to get for the last 12 months. She has been timing intercourse. Her menses are predictable. She is using ovulation predictor rené. She is having intercourse at appropriate times. She has premenstrual symptoms. She has children of her own. Her partner has children also. We discussed of the evaluation. We agreed to proceed with hysterosalpingogram. We talked about treatment options in some detail. I explained hysterosalpingogram and semen analysis. Patient has recent normal laboratory evaluation of thyroid, prolactin, FSH, LH. Spent over 20 minutes on her care in total including documentation. Fabian Riley MD [address], [place], [address], [facility] 12/16/2024 17:51:23 OBGyn Episode No OBEpisode recorded.
--- OUTSIDE RECORDS SUMMARY | 2025-01-31 10:12 | XMS_ITS | Patient Health Record ---
Author Organization [facility] Address [address] [place] [address] Care Team Providers Care Tax Commissioner Name Role Phone No, PCP Primary Care Provider LORETTA Ernst Unavailable [phone] Allergies Allergen (clinical drug ingredient) Drug/Non Drug Allergy documented on EMR Reaction Allergy Type Onset Date Status Codeine Phosphate Unknown Drug Allergy Active Reason For Referral No Information Medications Medication SIG (Take, Route, Frequency, Duration) Notes Start Date End Date Status Phentermine HCl 37.5 MG Capsule 1 capsule Orally Once a day Active Topamax 50 MG Tablet 1 tablet Orally Twi ce a day Active [place] Thyroid 120 MG Tablet 1 tablet on an empty stomach Orally Once a day Active Mirena Active Social History Tobacco Use: Social History Observation Description Date Details (start date - stop date) Never Smoker NA - NA Social History Drugs/Alcohol: Social Info Question Answer Notes Alcohol Screen (Audit-C) Did you have a drink containing alcohol in the past year? No Points 0 Interpretation Negative Drugs Have you used drugs other than those for medical reasons in the past 12 months? 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
--- OUTSIDE RECORDS SUMMARY | 2025-01-31 10:13 | XMS_ITS | Data Portability ---
Author Organization [facility] Address [address] [place] [address] Care Team Providers Care Hoof Trimmer Name Role Phone NELI PEREZ Primary Care Provider [phone] Assessment Encounter Date Assessment Date Assessment LastModified by Organization Details LastModified Time 02/07/2024 02/07/2024 Annual gynecological exam performed. Patient will come back in a year unless there are new symptoms. [email or web address] Not available 02/07/2024 10:09:20 Plan of Treatment Reminders Order Date Submit Date Provider Last Modified By Organization Details Last Modified Time Details Appointments SURG Hysterosa lpingogra m 2024 11:30A M Jesse BARR MD Not available Not available Not available [facility] 2024 03:15P M ESSENCE GREER NP Not available Not available Not available Lab pap, IG + HR HPV - HPV regardles s but if HPV is positive need subtyping 16,18/[address]/GC/Tri ch [address] [facility] (Lab), [address] , [place], [address], 02/20/2024 17:04:15 vitamin D, 25-hydrox y, total, serum [address] [facility] (Lab), [address], [place], [address], 11/05/2023 05:01:45 Referral None recorded. Procedures None recorded. Surgeries None recorded. Imaging XR, hysterosa lpingogra m - patient had her period 2024 025 [id number] [facility], [address], [place], [address], 01/27/2025 13:19:27 MAMMO, screening , digital, bilateral 2023 024 [facility], [address], [address], [place], [address], 08/18/2024 05:00:47 Medication Orders spironola ctone 25 mg tablet 2023 [facility][id number], [address], [place], [place], [id number], 03/07/2024 14:12:15 cholecalc iferol (vitamin D3) 1,250 mcg (50,000 unit) capsule 2023 024 [facility] #[id number], [address], [place], [place], [id number], 03/07/2024 14:10:39 Patient TargetsNo targets recorded. Patient InstructionsNo instructions recorded. Reason for Referral None Reported. Results Created Date Observation Date Name Description Value Unit Range Abnormal Flag Note LastModifiedBy Organization Detail LastModifiedTime 02/07/20 24 02/07/2024 IMAGE GUIDE D PAP AND HPV REGAR DLESS image guided Pap, HPV regardless of Pap result SEE RESULT S BELOW abnormal CASE REPOR T: Cytol ogy Gynec ologi abraham Repor t Case: [id number] Autho jamie g Provi julián: Dermo clive, Essence , ANP, JIG MAKER Colle cted: 02/06 1043 Order ing Locat ion: [place] [facility] Recei jorje: 02/08 1402 First Scree n: Ingris vincent, [place], [place] Patho logis t: Andrzej Hair MD Speci men: Scree clara Pap - Image d, Cervi x STATE MENT OF ADEQU ACY: Satis facto ry for evalu ation Trans forma tion zone compo nent prese nt ----- ----- ----- ----- ----- ----- ----- ----- ----- ----- ----- ----- ----- ----- ----- ----- ----- ---- FINAL DIAGN OSIS: Epith elial Cell Abnor malit y, Squam ous Cell: Atypi abraham Squam ous Cells of Undet ermin ed Durga rivas (ASC- US). Elect lorrie mccrary by Andrzej Hair MD on 02/19 at 3:59 PM ----- ----- ----- ----- ----- ----- ----- ----- ----- ----- ----- ----- ----- ----- ----- ----- ----- ---- HPV RESUL TS: HPV mRNA E6/E7 : Posit roopa - HPV mRNA Detec kristel HPV GENOT YPE 16 (PEPITO) : Not Detec kristel HPV GENOT YPE 18/45 (PEPITO) : Not Detec kristel NOTE: This high risk HPV mRNA assay detec ts fourt een high- risk HPV types (16, 18, 31, 33, 35, 39, 45, 51, 52, 56, 58, 59, 66, 68) witho ut diffe renti ation . This assay can diffe renti ate HPV 16 from HPV 18/45 , but does not diffe renti ate betwe en HPV 18 and HPV 45. A negat roopa HPV 16, 18/45 genot ype assay resul t does not exclu de the possi bilit y of cytol ogic abnor malit ies or of futur e or under lying JOSE 1, JOES 3 or cance r. COMME NT: This speci men was revie wed by a Cytot echno logis t and/o r Patho logis t (as indic ated in this repor t) after evalu ation using the Thinp rep Imagi ng Syste m. CLINI ABRAHAM INFOR MATIO N: Menst rual Statu s: LMP (if appli cable ): Clini abraham Histo ry/Pr eviou s Pap: Type of Neopl hank (if appli cable ): Signi fican t Clini abraham Findi ngs: Other Histo ry: Hormo chloe (if appli cable ): CHARISMA STEAlisha FOLLO W-UP: Follo w up as warra nted, based on curre nt guide lines and indiv idual patie nt consi derat ions. Not Available [facility] (Lab) [address], [place], [address], 02/20/2024 17:04:15 02/07/20 24 02/07/2024 TRICH OMONA S VAGIN CAREN (RRNA ) trichomonas vaginalis ribosomal RNA (rrna) Negati ve negati ve Not Available [facility] (Lab) [address], [place], [address], 02/20/2024 17:04:16 02/07/20 24 02/07/2024 CT/GC (PEPITO) , THINP REP VIAL chlamydia trachomatis, PCR Negati ve negati ve Not Available [facility] (Lab) [address], [place], [address], 02/20/2024 17:04:16 02/07/20 24 02/07/2024 CT/GC (PEPITO) , THINP REP VIAL neisseria gonorrhoeae, PCR Negati ve negati ve Not Available [facility] (Lab) [address], [place], [address], 02/20/2024 17:04:16 10/05/19 25 10/02/2024 MAMMO , scree clara, digit al, bilat eral No observ ation record ed. [id number] [facility] [address], [place], [address], 10/10/2024 16:31:51 10/05/19 25 10/02/2024 MAMMO , scree clara, digit al, bilat eral No observ ation record ed. [address], [place], [address], 10/10/2024 16:31:51 10/05/19 25 10/02/2024 MAMMO , scree clara, digit al, bilat eral No observ ation record ed. [address] [facility] [address], [place], [address], 10/10/2024 16:31:51 10/05/19 25 10/02/2024 MAMMO , scree clara, digit al, bilat eral No observ ation record ed. [address] [facility] [address], [place], [address], 10/10/2024 16:32:58 12/04/1911/29/2024 MAMMO , diagn ostic , digit al, bilat eral No observ ation record ed. [address] [facility] [address], [place], [address], 12/10/2024 12:06:08 Result Notes None recorded. Problems Name Problem SNOMED Code Status Onset Date Resolution Date Notes Provider Name and Address Organization Details Recorded Time [facility] ion Completed 201011/23/2020 Routine gynecolog ical examinati on;Practi ce ID: 0001 Erika martinez [facility] 10:44:58 Screenin g for malignan t neoplasm of cervix Completed 201011/23/2020 Pap Smear;Pra ctice ID: 0001 Erika martinez [facility] 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 10:44:47 Herpes simplex 17041061 Completed 201011/23/2020 Herpes simplex without mention of complicat ion;Pract ice ID: 0001 Erika Patel [facility] 10:44:38 Morbid obesity 027767751 Completed 201311/23/2020 Morbid obesity;P ractice ID: 0001 Erika Patel [facility] 10:44:45 Family planning surveill ance Completed 201311/23/2020 Contracep tive surveilla nce, unspecifi ed;Practi ce ID: 0001 Erika Patel [facility] 10:44:36 Removal of intraute rine device Completed 201311/23/2020 REMOVAL OF IUD;Pract ice ID: 0001 Erika Patel [facility] 10:44:50 Insertio n of intraute rine contrace ptive device Completed 201311/23/2020 INSERTION OF IUD;Pract ice ID: 0001 Erika Patel [facility] 10:44:41 Pregnanc y test negative [id number] Completed 201311/23/2020 Negative Test;Prac mona ID: 0001 Erika Patel [facility] 10:44:49 Irregula r periods 74986041 Completed 201311/23/2020 Irregular menstrual cycle;Pra ctice ID: 0001 Erika Patel [facility] 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 10:44:[address] Concept Completed 201411/23/2020 Encntr for general adult medical exam w/o abnormal findings; Recorded Elsewhere : No Locati on: [facility] So urce: EHR Chron ic: N Practic e ID: 0001 Bill able Time: 10:30:00 AM Erika Patel [facility] 10:44:54 Human papillom avirus deoxyrib onucleic acid detected , high risk on cervical specimen [id number] Completed 201511/23/2020 Cervical high risk HPV DNA test positive; Practice ID: 0001 Erika [facility] 10:44:39 Clinical finding Completed 201811/23/2020 Presence of (intraute rine) contracep tive device;Re corded Elsewhere : No Locati on: [facility] So urce: EHR Chron ic: N Practic e ID: 0001 Bill able Time: 09:30:00 AM Erika martinez [facility] 10:44:33 Contrace ptive sheath status [id number] Completed 201811/23/2020 Encounter for routine checking of intrauter ine contracep dev;Pract ice ID: 0001 Erika Patel [facility] 10:44:35 Problem Notes None recorded. Procedures Surgical History Date Name Laterality Status Provider Name and Address Organization Details Recorded Time IUD Removal completed Fabian Barr MD [address], [place], [address], [facility] 03/07/2024 14:47:24 Date of Last Pap Smear completed Mari Santoyo [facility] 03/07/2024 14:14:51 018 Gastric Bypass completed [facility] 11/23/2020 11:38:23 009 section [facility] 11/23/2020 11:37:56 007 strabismus surgery completed Erika [facility] 11/23/2020 11:38:06 Cholecystectomy completed Lyn Cyr [facility] 11/20/2019 15:35:53 Imaging Results None recorded. Procedure Notes None recorded. Medical Equipment None Reported. Allergies Allergen ID Allergen Name Allergen Category Reaction Reaction Severity Criticality Documentation Date Start Date Code Code System Note Provider Name and Address Organization Details Recorded Time 1982 codeine medicatio n Not available Not available Not available 11/20/2019 2670 RxNorm Lyn Cyr juan [facility] 0 15:35:05 24139 morphine medicatio n Not available Not available [...] completed Not Available Not Available Not Available [place] Thyroid 90 mg tablet 03/23 completed Prescrib ed Elsewher e: Yes Loca tion: [facility] M odify By: gary barboza DateTime : 02/10/20 [...] Prescrib ed Elsewher e: Yes Loca tion: [facility] odify By: mildred barboza DateTime : 07/12/19 [...] Prescrib ed Elsewher e: Yes Loca tion: [facility] odify By: mildred barboza DateTime : 01/23/20 [...] Prescrib ed Elsewher e: Yes [facility] By: mildred Bo ncounter DateTime : 06/06/19 19 02:45:00 PM Not Available Not Available Not Available loratadin e 10 mg tablet take 1 tablet by oral route every day 04/24 completed Prescrib ed Elsewher e: Yes [facility]oca [facility] odify By: mildred Bo ncounter DateTime : 01/23/20 12 09:15:00 AM Not [...] Elsewher e: Yes Loca tion: Mayra bo [facility] odify By: mildred marieuntander DateTime : 02/10/20 17 08:30:00 AM Not Available Not Available Not Available Topamax 15 mg sprinkle capsule take 1 capsule by oral route 2 times every day in the morning and evening 06/04 completed Prescrib ed Elsewher e: Yes Loca tion: Mayra bo [facility] odify By: midlred marieunter DateTime : 06/06/19 19 02:45:00 PM Not Available Not Available Not Available Topamax 50 mg tablet take 1 tablet by oral route 2 times every day 02/03 completed Prescrib ed Elsewher e: Yes Loca tion: Mayra bo [facility] odify By: sophia rodriguez DateTime : 01/23/20 12 08:07:34 AM [...] ed Elsewher e: Yes Loca tion: Mayra [facility] odify By: islverio marieunter DateTime : 02/08/20 16 08:15:00 AM Not [...] Elsewher e: Yes Loca tion: Mayra bo [facility] odify By: mildred Bo ncounter DateTime : 04/24/19 02:30:00 PM Not Available Not Available Not Available levothyro xine 50 mcg capsule Take 1 capsule every day by oral route. 03/07 completed Not Available Not Available Not Available Multi Vitamin active Not Available Not Available Not Available Trokendi XR 25 mg capsule,e xtended release take 1 capsule by oral route every day 02/09 completed Prescrib ed Elsewher e: Yes [facility] By: silverio marieunter DateTime : 02/04/20 15 10:30:00 AM Not Available Not Available Not Available Lortab Elixir 10 mg-300 mg/15 mL oral solution take 11.25 millilit er by oral route every 4 - 6 hours as needed 06/05 completed Prescrib ed Elsewher e: Yes Loca tion: Lydia anupam [facility] odify By: mildred marieunter DateTime : 04/24/19 02:30:00 PM Not Available Not Available Not [...] and Address Organization Details Last Updated DateTime 05/01/2023 173.36 cm 25.8 kg/m2 84942.3 g 112/73 mm[Hg] [facility] 05/01/2023 09:37:14 Date Recorded Body height Body mass index (BMI) Body weight Systolic And Diastolic Provider Name and Address Organization Details Last Updated DateTime 12/16/2024 173.36 cm 24.6 kg/m2 47786.56 g 124/78 mm[Hg] Mari [facility] 12/16/2024 17:13:40 Date Recorded Body height Body mass index (BMI) Body weight Systolic And Diastolic Provider Name and Address Organization Details Last Updated DateTime 02/07/2024 173.36 cm 24.2 kg/m2 50818.5 g 105/68 mm[Hg] Kelly Ball [facility] 02/07/2024 10:27:45 Date Recorded Body height Body mass index (BMI) Body weight Systolic And Diastolic Provider Name and Address Organization Details Last Updated DateTime 03/07/2024 173.36 cm 25.5 kg/m2 12463.11 g 122/77 mm[Hg] Mari [facility] 03/07/2024 14:10:16 Social History Question Answer Notes LastModified by Organizat ion Details LastModified Time Tobacco Smoking Status Never Smoker Erika Patel [facility] 11/23/2020 11:36:02 Do You Have An Advance Directive? No Information n ot available 11/23/2020 Are You Blind Or Do You Have Difficulty Seeing? No Information n ot available 11/23/2020 What Is Your Level Of Caffeine Consumption? Moderate Information not available 02/07/2024 How Much Tobacco [...] Or The Highest Degree You Have Received? 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 No Information not available 11/26/2021 What is your exercise level? Occasional [email or web address] Information not available 02/07/2024 Mental Status Question Answer Note LastModified by Organization D etails LastModified Time Do you feel stressed (tense, restless, nervous, or anxious, or unable to sleep at night)? [id number] Information not available 11/23/2020 Family History Relationship [...] ICD10 Code Diagnosis IMO Codes Diagnosis Note [id number] Bernie [facility] [address] [address] 11/21/2019 09:06:16 11/21/2019 09:45:32 Gynecologic examination 22735300 Z01.419 Take Calcium with Vitamin D 1200mg daily if not receiving in daily diet. It is strongly advised to have an annual flu shot and up can obtain at most pharmacies . If you have not had a TDap shot in the last 10 years you should obtain one as well. Discussed with patient & provided with informatio n regarding Gardisil vaccine to prevent the 4 strains for HPV that cause cervical cancer if under age 26. Encourage safe sexual practices, to use condoms and limit partners if not already in a monogamous relationsh ip. Do monthly self breast exams. Have mammogram yearly or every other year depending on family history. BRCA testing is now available for patients with strong genetic history of female cancer. If interested contact the office. Engage in daily exercise of low impact aerobic exercise 45-60 minutes 4-5 times weekly. Avoid tobacco and illicit drugs as well as using moderation with alcohol intake less than 1-2 8 oz beverages daily. This lifestyle behavior pattern will lead to less health conditions and longer life span. If BMI greater than 25 weight watchers or dietary consult advised. Patient received above instructio ns, and questions have been answered. If you have any questions please call or respond to this email. Patient was made aware of the patient portal and may obtain a paper copy of today's plan if desired. Adult heal th examination [id number] Z00.00 E03.9 [id number] Bernie Figueroa [facility] [address],[place] [address] 06/04/2020 10:38:55 06/04/2020 11:25:23 test negative 905785311 Z32.02 Vaginitis 99110395 N76.0 Exam suspect for BV as prominent odor & vag d/c resembling such. She is with a new partner (getting from her spouse of 17yrs who was unfaithful ). We will treat for BV and send testing to confirm no other issues. Time spent in visit is a total of 15 mins with at least 50% of visit consisting of counseling and review of plan of care. Sexually t ransmitted infectious disease 9111659 A64 Postcoital bleeding 4888 0000 N93.0 One instance of PCB with new partner. No pelvic pain or other sx's other than vaginitis complaints . We agreed to treat BV, send cx's and monitor PCB. If it happens again she will call for updated TVUS to be done. [id number] Bernie Figueroa [facility] [address],[facility] [place] [address] 11/23/2020 11:20:08 11/23/2020 12:47:35 Gynecologic examination 16833993 Z01.419 Take Calcium with Vitamin D 1200mg daily if not receiving in daily diet. It is strongly advised to have an annual flu shot and up can obtain at most pharmacies . If you have not had a TDap shot in the last 10 years you should obtain one as well. Discussed with patient & provided with informatio n regarding Gardisil vaccine to prevent the 4 strains for HPV that cause cervical cancer if under age 26. Encourage safe sexual practices, to use condoms and limit partners if not already in a monogamous relationsh ip. Do monthly self breast exams. Have mammogram yearly or every other year depending on family history. BRCA testing is now available for patients with strong genetic history of female cancer. If interested contact the office. Engage in daily exercise of low impact aerobic exercise 45-60 minutes 4-5 times weekly. Avoid tobacco and illicit drugs as well as using moderation with alcohol intake less than 1-2 8 oz beverages daily. This lifestyle behavior pattern will lead to less health conditions and longer life span. If BMI greater than 25 weight watchers or dietary consult advised. Patient received above instructio ns, and questions have been answered. If you have any questions please call or respond to this email. Patient was made aware of the patient portal and may obtain a paper copy of today's plan if desired. No issues or concernsIU D in placeSTD declinedGo ing through divorce-ho ping it's over soonPaphpv sent [id number] Bernie Figueroa [facility] [address] [address] 11/26/2021 10:07:43 11/26/2021 11:43:26 Gynecologic examination 59102609 Z01.419 Z11.51 Take Calcium with Vitamin D 1200mg daily if not receiving in daily diet. It is strongly advised to have an annual flu shot and up can obtain at most pharmacies . If you have not had a TDap shot in the last 10 years you should obtain one as well. Discussed with patient & provided with informatio n regarding Gardisil vaccine to prevent the 4 strains for HPV that cause cervical cancer if under age 26. Encourage safe sexual practices, to use condoms and limit partners if not already in a monogamous relationsh ip. Do monthly self breast exams. Have mammogram yearly or every other year depending on family history. BRCA testing is now available for patients with strong genetic history of female cancer. If interested contact the office. Engage in daily exercise of low impact aerobic exercise 45-60 minutes 4-5 times weekly. Avoid tobacco and illicit drugs as well as using moderation with alcohol intake less than 1-2 8 oz beverages daily. This lifestyle behavior pattern will lead to less health conditions and longer life span. If BMI greater than 25 weight watchers or dietary consult advised. Patient received above instructio ns, and questions have been answered. If you have any questions please call or respond to this email. Patient was made aware of the patient portal and may obtain a paper copy of today's plan if desired. Pap/hpv sent STD Screen declined Genetic Screen discussed Colon Screen na Dexa Screen na Routine Labs PCPMammo na [id number] Haven Ce[facility] [address],[place] [address] 10/07/2022 12:08:29 10/07/2022 13:07:13 Vaginitis 54691944 N76.0 suspect BV/yeastva ginitis / STI panel sentvulvar care guidelines reviewedrx sent, R/B/A discussedn otify the office if symptoms persist past treatment Time spent in visit is a total of 20 mins with at least 50% of visit consisting of counseling and review of plan of care. Vaginal odor 243311004 N 89.8 Venereal d isease screening 990466309 Z11.3 [id number] Bernie Figueroa [facility] [address] [address] 12/02/2022 09:14:28 12/02/2022 09:37:29 Gynecologic examination 91738627 Z01.419 Z11.51 Take Calcium with Vitamin D 1200mg daily if not receiving in daily diet. It is strongly advised to have an annual flu shot and up can obtain at most pharmacies . If you have not had a TDap shot in the last 10 years you should obtain one as well. Discussed with patient & provided with informatio n regarding Gardisil vaccine to prevent the 4 strains for HPV that cause cervical cancer if under age 26. Encourage safe sexual practices, to use condoms and limit partners if not already in a monogamous relationsh ip. Do monthly self breast exams. Have mammogram yearly or every other year depending on family history. BRCA testing is now available for patients with strong genetic history of female cancer. If interested contact the office. Engage in daily exercise of low impact aerobic exercise 45-60 minutes 4-5 times weekly. Avoid tobacco and illicit drugs as well as using moderation with alcohol intake less than 1-2 8 oz beverages daily. This lifestyle behavior pattern will lead to less health conditions and longer life span. If BMI greater than 25 weight watchers or dietary consult advised. Patient received above instructio ns, and questions have been answered. If you have any questions please call or respond to this email. Patient was made aware of the patient portal and may obtain a paper copy of today's plan if desired. Pap/hpv sentSTD Screen declinedGe netic Screen discussedC olon Screen naDexa Screen naRoutine Labs PCPMammo na [id number] Haven Ceja [facility] [address],[place] [address] 02/08/2023 17:01:10 02/09/2023 10:14:49 Venereal disease screening 753693548 Z11.3 gc/ct/tric h testing sentblood STI panel orderedsaf e sexual practices discussed and encouraged Sexually t ransmitted infectious disease 7959667 A64 Loss of hair 293197561 L 65.9 Female hirsutism 1317524 9 L68.0 labs ordereddis cussed management optionsint in spironolac tone, r/b/a reviewedaw are of potential interactio ns with current medicaton regimen and need to clear use with PCPif CMP wnl, can send in rx at that time Time spent in visit is a total of 30 mins with at least 50% of visit consisting of counseling and review of plan of care. [id number] Haven Ceja MEREDITH [place] [address],[place] [address] 05/01/2023 09:18:36 05/01/2023 10:10:03 Vitamin D deficiency [id number] E55.9 low vitamin Drx vitamin D3 weekly x 8 weeksrepea t vitamin D level in 8 weeks Female hirsutism [id number] L68.0 doing well on spironolac tone and desires to continueha s noticed improvemen trx sent, r/b/a reviewedRT C for WWE or sooner if needed Time spent in visit is a total of 20 mins with at least 50% of visit consisting of counseling and review of plan of care. [id number] Fabian Barr MD [place] [facility] [address],[place] [address] 02/07/2024 09:57:03 02/07/2024 10:50:41 Gynecologic examination [id number] Z01.419 Annual gynecologi abraham exam performed. Patient will come back in a year unless there are new symptoms. Suggest Calcium with Vitamin D if not eating in diet. Patient advised to get annual flu shot. Recommend yearly physicals and perform monthly breast exams. Genetic testing is available for patients with family history of cancer. Engage in safe sexual practices, use condoms. Encouraged to have daily exercise. Avoid tobacco and illicit drugs, moderation of alcohol. If BMI greater than 25 dietary consult advised. If you have any questions please call or email. mammogram- DUE; order given, pt to schedule colon cancer screening - n/a DEXA scan- n/a Pap smear- pap w/ HPV collected (per pt request) laboratory evaluation - PCP STI testing - requested A Mirena IUD prevents for up to 8 years, and also helps with heavy periods for up to 5 years in women who choose an IUD for control. Patient's IUD expires 06/06/2026. Discussed possible risks associated with advanced maternal age in terms of and maternal morbidity. Recommende d that patient schedule an appointmen t with Dr. Barr or Bjorn for further preconcept ion counseling and to further discuss risks associated with at an advanced maternal age/hx of bariatric surgery/co mplication s from past pregnancie s. Patient verbalized understand ing. Screening mammography 24 [id number] Z12.31 [id number] Fabian Barr MD [place] [address] [address] 03/07/2024 13:52:46 03/07/2024 15:09:47 Contraception care management [id number] Z30.9 This patient is a 30-year-ol d female. Her baby is doing well. The baby is breastfeed ing. Mother is doing well, her mood is good. She had intercours e yesterday, she is not bleeding, she had salpingect aditya at the time of her . She has recovered normally from her . She will follow up in 2-3 months for well-woman exam. [id number] Fabian Barr MD [place] [facility] [address] [address] 12/16/2024 16:37:32 12/16/2024 18:01:20 Female infertility [id number] N97.9 [id number] This patient is a 39-year-ol d female [...] by Organization Details LastModified Time None Recorded Advance Directives Directive N: Payers Insurance Date Sequence Insurance Name Policy Number Policy Gore Covered Member ID Gore Member ID Guarantor Name 11/19/2024 1 [facility] [id number] Oleg Ayon [id number] Oleg Ayon 11/09/2020 1 [place] [id number] Jensen Ayon [id number] Oleg Ayon 11/23/2021 1 [place] [id number] Jensen Ayon [id number] Oleg Ayon 11/21/2020 1 [place] [facility] PRIOR TO 10/11/2024 (MEDICAID REPLACEMENT - HMO) [id number] Jensen Ayon [id number] Oleg Ayon 01/28/2025 1 [place] [id number] Oleg Ayon [id number] Oleg Ayon 03/07/2024 1 [place] [id number] Oleg Ayon [id number] Oleg Ayon Notes Date Note Type Note Provider Name and Address Organization Details Recorded Time 4 text/html 37yopresents for med checkstarted spironolactone at [facility] for management of hirsutismdoing well, no issueslow Vitamin D at [facility], never picked up vitamin D supplements MINO Horn [address], [place], [address], [place] [facility] 05/01/2023 09:57:54 4 text/html Annual GYNReported by PatientGenitourinary symptomsFor urinary symptoms, patient reportsno hematuriaandno incontinence. For vulva, patient reportsno genital lesion. For vagina, patient reportsnormal vaginal discharge. For menstrual cycle, (no cycles with iud).Breast symptomsFor breast, patient reportsno breast pain,no breast lump, andno nipple discharge.ContraceptionFo r current contraception, patient reportssatisfied with current contraceptionandintrauter ine device (iud).Endocrine symptomsFor sexual complaints, patient reportsno sexual complaints,no pain during intercourse, andnormal libido. For menopausal symptoms, patient reportsno menopausal symptomsandnormal vaginal lubrication.Psychological symptomsFor psychological symptoms, patient reportsno depression,no anxiety, andno pmdd.Preventative measuresFor preventive measures, patient reportsencourage self breast examination,encourage regular exercise,encourage no tobacco use,encourage regular mammograms starting age 40, andneeds to schedule mammogram. Patient presents for annual well woman exam. Patient denies concerns today.Patient states that her and her partner may be considering , but want to know the risks of at age 38 and with hx of bariatric surgery. Patient states that she had difficulty getting with her first child, 16 years ago. Patient also states that she had post-op complications and hx hemorrhage. Patient states that this would be from a different partner, who also has children. Kelly martinez, [facility] 02/07/2024 11:22:17 4 text/html 38-year-old female who presents for IUD Removal. The procedure was explained to the patient in detail. She understands the procedure. She understands the risks, benefits, and alternatives. She has completed the informed consent process and is ready to proceed. Fabian Barr MD [address], [place], [address], [facility] 03/07/2024 14:47:59 5 text/html This patient is a 39-year-old [...] her care in total including documentation. Fabian Barr MD [address], [place], [address], [facility] 12/16/2024 17:51:23 OBGyn Episode Ob Episode Information Episode Created Date Number of Fetuses Patient Bloodtype Patient rh Status Prepregnancy Weight lbs Domestic Partner Domestic Partner Phone Father Name Compensation Coordinator Status 11/24/19 21 1 CLOSED Fetus Data First Name Last Name Admitted to NICU Weight (g) Sex Living Outcome Pediatric Complications Fetus ID Race Codes Race Delivery Type [id number] Vaginal Delivery Ibrahima Calculation Initial Ibrahima Date Initial Exam Date Initial Exam Provider Initial Ultrasound Date Last Menstrual Period Date Ultra Sound Weeks Gestation 0 Eighteen To Twenty Week Ibrahima Update Ultra Sound Date Fundal Height At Umbil Quickening Date Ultra Sound Latest Weeks Gestation Final Ibrahima Confirmed By Final Ibrahima Confirmed Date Final Ibrahima Date Ultra Sound Latest Days Gestation 0 0 Menstrual History Last Menstrual Date Menses Monthly On Bcp Conception Prior Menses Frequency Hcg Plus Date Menarche Onset Age Delivery Information Delivery Date Delivery Type Labor Anesthesia Weeks Gestation Incision Type Labor Labor Length Hrs Delivered By Post Complications Tubal Sterilization Discharge Date Comments 8 Discharge Information Feeding Method Contraceptive Method Maternal HG B and HCT Levels Ob Episode Information Episode Created Date Number of Fetuses Patient Bloodtype Patient rh Status Prepregnancy Weight lbs Domestic Partner Domestic Partner Phone Father Name Compensation Coordinator Status 11/24/19 21 1 CLOSED Fetus Data First Name Last Name Admitted to NICU Weight (g) Sex Living Outcome Pediatric Complications Fetus ID Race Codes Race Delivery Type [id number] Primary Ibrahima Calculation Initial Ibrahima Date Initial Exam Date Initial Exam Provider Initial Ultrasound Date Last Menstrual Period Date Ultra Sound Weeks Gestation 0 Eighteen To Twenty Week Ibrahima Update Ultra Sound Date Fundal Height At Umbil Quickening Date Ultra Sound Latest Weeks Gestation Final Ibrahima Confirmed By Final Ibrahima Confirmed Date Final Ibrahima Date Ultra Sound Latest Days Gestation 0 0 Menstrual History Last Menstrual Date Menses Monthly On Bcp Conception Prior Menses Frequency Hcg Plus Date Menarche Onset Age Delivery Information Delivery Date Delivery Type Labor Anesthesia Weeks Gestation Incision Type Labor Labor Length Hrs Delivered By Post Complications Tubal Sterilization Discharge Date Comments 9 Discharge Information Feeding Method Contraceptive Method Maternal HG B and HCT Levels
--- NOTE | 2025-01-31 12:12 | W.PM.PROC2 ---
Procedure Note - Detailed Date of Procedure 01/31/25 Pre-op Diagnosis Infertility Post-op Diagnosis Same Procedure Performed Hysterosalpingogram Surgeon Fabian Barr MD Anesthesia None Indications unexplained infertility Findings normal hysterosalpingogram Description of Procedure the patient was placed on the fluoroscopy table. A speculum was placed in the vagina. Cervix was grasped with a tenaculum. The catheter was placed the uterine cavity and the bulb was inflated. The speculum was removed with the angiocath still placed in the intrauterine cavity. Dye was then removed. The catheter. Fluoroscopic images obtained this process. Patient experienced some moderate to severe discomfort. The balloon of the catheter was deflated and the catheter was removed while the images were being obtained. The procedure was terminated. Patient tolerated the procedure well. There were no complications. Estimated Blood Loss 0 Complications No immediate complications Condition Stable Disposition Other
== END 2025-01-31 10:09 | disposition home or self-care (01) ==
LOC: ANHIMG 10:09
PROVIDERS: PCP Nurse Practitioner; Visit Provider Obstetrics & Gynecology
DX: N97.9 Female infertility, unspecified (principal)
CPT/HCPCS: 58340; 74740; Q9966